=== PATIENT | male | born 1975 | race African-American/Black ===

== ENCOUNTER 2018-10-26 11:40 | Inpatient (IN) | payer SELFPAY ==
[~2018-10-26 11:40] MED LIST: ISOVUE-370 76%-LOCM 1 ML ONE
[2018-10-26] MEDS ORDERED: Ondansetron PF 4 MG/2 ML Vial ONE ×2 (11:54→13:38)
[2018-10-26 12:10] LABS: #Basophils 0.1 thou/uL (0.0-0.2); #Lymphocytes 4.3 thou/uL (1.20-3.40); %Basophils 0.9 % (0.0-1.0); %Eosinophils 0.2 % (0.0-10.0); %Lymphocytes 32.1 % (21.0-51.0); %Monocytes 7.7 % (0.0-10.0); %Neutrophils 59.1 % (42.0-75.0); Hemoglobin 18.2 g/dL (14.0-18.0); Mean Corpuscular HGB CONC 34.4 g/dL (32.0-36.0); Mean Corpuscular Volume 90.2 fL (78.0-98.0); Mean Platelet Volume 9.5 fL (7.4-10.4); Platelet Count 180 thou/uL (130-400); RBC Distribution Width 12.4 % (11.5-14.5); Red Blood Cell (RBC) Count 5.87 mill/uL (4.70-6.10); White Blood Cell (WBC) Count 13.5 thou/uL (4.8-10.8)
--- NOTE | 2018-10-26 12:12 | RAD ---
EXAM: Single view of the chest HISTORY: Chest pain COMPARISON: 04/21/2013 FINDINGS: Single view of the chest shows a normal sized cardiomediastinal silhouette. There is no jaimie dence of consolidation, mass, or pleural effusion. The bones are unremarkable. IMPRESSION: No evidence of acute cardiopulmonary disease
[2018-10-26 12:28] LABS: Platelet Morphology Comment Appears Adequate; RBC Morphology Normal
--- NOTE | 2018-10-26 12:36 | CT ---
EXAM: CTA of the chest and abdomen HISTORY: Chest pain and back pain COMPARISON: None TECHNIQUE: Multiple contiguous axial images were obtained a CTA of the chest and abdomen with contras t per aortic dissection protocol. Sagittal and coronal 3-D MIP reformats were performed. FINDINGS: HEART: Normal in size without focal cardiac abnormality. PULMONARY ARTERIES: Normal in caliber without filling defects to suggest pulmonary emboli. THORACIC AORTA: Normal in caliber without evidence dissection or aneurysmal dilatation. MEDIASTINUM: No hilar or mediastinal lymphadenopathy. LUNGS: No focal infiltrates or masses. PLEURAL SPACE: No pleural effusion or pneumothorax. CHEST AND ABDOMINAL WALL SOFT TISSUES: Unremarkable LIVER: Unremarkable. GALLBLADDER: Unremarkable. KIDNEYS: Unremarkable. SPLEEN: Unremarkable. PANCREAS: Unremarkable. BOWEL: Unremarkable. RETROPERITONEUM: No lymphadenopathy BONES: Unremarkable ASCENDING THORACIC AORTA:Normal caliber without evidence of dissection or aneurysmal dilatation. DESCENDING THORACIC AORTA:Normal caliber without evidence of dissection or aneurysmal dilatation. ABDOMINAL AORTA: Normal caliber without evidence of dissection or aneurysmal dilatation. CELIAC TRUNK: Patent SMA: Patent KAROLYN: Patent RENAL ARTERIES: Bilateral single renal arteries without significant atherosclerotic disease IMPRESSION: No evidence of thoracic or abdominal aortic aneurysm or dissection
[2018-10-26 12:53] LABS: PTT 27.4 SEC (22.9-36.1); Prothrombin Time 13.6 SEC (12.0-14.7)
[2018-10-26 12:54] LABS: ALT (SGPT) 37 U/L (8-55); AST (SGOT) 85 U/L (5-34); Albumin 5.2 g/dL (3.5-5.0); Alkaline Phosphatase 103 U/L (40-150); Anion Gap 21 mmol/L (10-20); BUN (Urea Nitrogen) 28 mg/dL (8.9-20.6); Bilirubin, Total 1.2 mg/dL (0.2-1.2); CK (CPK) 3785 U/L (30-200); Calc. Creatinine Clearance 0 mL/min (70-130); Calcium 10.7 mg/dL (7.8-10.44); Carbon Dioxide 27 mmol/L (22-29); Chloride 92 mmol/L (98-107); Estimated GFR-MDRD 39; Globulin 3.6 g/dL (2.4-3.5); Glucose 139 mg/dL (70-105); Lipase 22 U/L (8-78); Potassium 3.7 mmol/L (3.5-5.1); Protein, Total 8.8 g/dL (6.0-8.3); Sodium 136 mmol/L (136-145)
[2018-10-26 13:16] LABS: Iron 258 ug/dL (65-175); Iron Binding Capacity, Total 263 mcg/dL (261-462)
[2018-10-26] MEDS ORDERED: Morphine 4 MG/ML VIAL ONE (13:37)
[2018-10-26] MEDS ORDERED: Aspirin Chewable 81 MG TAB ONE (13:38)
[2018-10-26] MEDS ORDERED: Pantoprazole 40 MG VIAL ONE (13:38)
[2018-10-26] MEDS ORDERED: Ondansetron ODT 4 MG TAB SL PRN (14:46)
[2018-10-26] MEDS ORDERED: Acetaminophen 325 MG TAB PO PRN (14:46)
[2018-10-26] MEDS ORDERED: Ondansetron PF 4 MG/2 ML Vial IVP PRN (14:46)
[2018-10-26 15:42] LABS: Troponin I 0.047 ng/mL (< 0.028)
[2018-10-26 17:08] VITALS: BMI 25.4
[2018-10-26] MEDS: Sodium Chloride 0.9% 1,000 ML IV SCH ×3 (17:51→21:09)
[2018-10-26 18:26] LABS: Troponin I 0.041 ng/mL (< 0.028)
[2018-10-26] MEDS ORDERED: Calcium Carbonate 500 MG ChewTAB PO PRN (18:42)
[2018-10-26] MEDS ORDERED: Nitroglycerin 0.4 MG TAB (25 Tab Bottle) SL PRN (18:45)
[2018-10-26] MEDS: Pantoprazole 40 MG VIAL IVP SCH (21:09)
[2018-10-26] MEDS: Dicyclomine 10 MG CAP PO PRN (21:10)
[2018-10-26] MEDS ORDERED: Morphine 2 MG/ML SYRINGE SLOW IVP SCH (22:15)
--- NOTE | 2018-10-27 00:41 | HP ---
CHIEF COMPLAINT: Vomiting and diarrhea. HISTORY OF PRESENT ILLNESS: This patient is a 43-year-old male who is in generally very good health, who states he was doing well until Friday (today being Friday). The patient reports that on Friday, started developing some chills, sweats and low back pain, then developed nausea, vomiting, and diarrhea. He was unable to keep any p.o. down. Subsequent to that, he could not even keep down water. He kept going to work thinking he could wear it out and sweat it out. He installs carpet for living works physically. He just progressively got weaker and ultimately became lightheaded, felt like he might pass out. Reported that he had a fair amount of vomiting and 12/10 abdominal cramping pain. Reports he did ultimately have tiny streaks of blood associated with the emesis. He was ultimately able to try to keep a little bit of Pedialyte down very briefly, but ultimately that was only for a few minutes and would come back up as well. Denied specifically any fever. Denied any ill contacts. Denied any travel. Denied any suspect food intake. REVIEW OF SYSTEMS: The patient reports he had no urine output from Friday through Friday, at which time he started to keep down a little bit of Pedialyte briefly, the patient did report that he had some left-sided chest pain on arrival, but that resolved. All other systems reviewed and all pertinent positives and negatives in the history of present illness. PAST MEDICAL HISTORY: None. PAST SURGICAL HISTORY: Knee and jaw. FAMILY HISTORY: Grandparents had heart disease. His parents are both living and healthy. SOCIAL HISTORY: The patient smokes half a pack a day. Denies alcohol or drugs. He is single. He is full code. He lives with his parents and son. His mother, Marianna Nair would be his surrogate decision maker should that become necessary. ALLERGIES: NONE. CURRENT MEDICATIONS: None. PHYSICAL EXAMINATION: VITAL SIGNS: Temperature is 98.2, pulse 96, respirations 18, O2 saturation 98% on room air, and BP 134/84. GENERAL APPEARANCE: Age-appropriate male, in no distress. He is awake, alert, oriented, extremely pleasant, and cooperative. HEENT: CANDI. No OP lesions. TMs are normal. NECK: Supple and symmetric. HEART: Regular rate and rhythm without murmurs, gallops, or rubs. LUNGS: Clear to auscultation bilaterally with good chest wall expansion and air exchange. ABDOMEN: Soft, nontender, and nondistended. Has some hyperactive bowel sounds. No masses. No organomegaly. EXTREMITIES: No cyanosis, clubbing or edema. LABORATORY DATA: White count 13.5, hemoglobin 18.2, platelets 180. INR 1.0, PTT 27.4. Sodium 136, potassium 3.7, chloride 92, BUN 28, creatinine is 2.23, glucose 139, calcium 10.7. Iron 258. TIBC 263, ferritin 256, AST 85, ALT 37, alkaline phosphatase 103, CK 3785, CK-MB is 9.0, troponin 0.039. Albumin is 5.2, lipase 22. IMAGING DATA: CT dissection protocol is negative. Chest x-ray negative. IMPRESSION AND PLAN: 1. Nausea, vomiting, and diarrhea consistent with a gastroenteritis, likely viral illness, potentially some food poisoning. We will check stool studies. He already seems to be feeling some better with some fluid resuscitations. Been able to keep a little bit down with low liquids here so far. 2. Chest pain, unclear etiology. The patient appears to be profoundly dehydrated. He only has a risk factor of smoking half a pack a day. He has elevated total CK along with an elevated CK-MB and indeterminate troponins. Suspect this is non ST elevation myocardial infarction type 2 secondary to dehydration. We will continue to monitor. I believe the patient may benefit from a stress test once he is over his gastrointestinal symptoms and able to tolerate it well. 3. Rhabdomyolysis, likely due to the vomiting and the dehydration. Continue to hydrate. Do not believe his levels would warrant alkalinization at this time. 4. Acute renal failure. The patient's normal GFR is unknown, but there is no history of any renal issues and his GFR now is at 39 with a creatinine of 2.23. We will continue to hydrate and suspect this will improve with time. 5. Reflux. The patient is requesting medications for reflux, which is likely part of his gastroenteritis. May have esophagitis from the vomiting. We will give him some Zofran, Protonix and Bentyl. 6. Tobacco abuse. The patient has not smoked since 0100 hours today, says he has no desire to and believes he will quit at this point. Job ID: [id number]
[2018-10-27] MEDS: Sodium Chloride 0.9% 1,000 ML IV SCH ×3 (03:28→21:02)
[2018-10-27 06:31] LABS: Anion Gap 12 mmol/L (10-20); BUN (Urea Nitrogen) 16 mg/dL (8.9-20.6); Calc. Creatinine Clearance 97 mL/min (70-130); Calcium 8.8 mg/dL (7.8-10.44); Carbon Dioxide 29 mmol/L (22-29); Chloride 98 mmol/L (98-107); Estimated GFR-MDRD 77; Glucose 106 mg/dL (70-105); Potassium 3.1 mmol/L (3.5-5.1); Sodium 136 mmol/L (136-145)
[2018-10-27 06:37] LABS: Hemoglobin 13.5 g/dL (14.0-18.0); Mean Corpuscular HGB CONC 34.1 g/dL (32.0-36.0); Mean Corpuscular Hemoglobin 31.8 pg (27.0-31.0); Mean Corpuscular Volume 93.2 fL (78.0-98.0); Mean Platelet Volume 9.7 fL (7.4-10.4); Platelet Count 129 thou/uL (130-400); RBC Distribution Width 12.3 % (11.5-14.5); Red Blood Cell (RBC) Count 4.26 mill/uL (4.70-6.10); White Blood Cell (WBC) Count 9.9 thou/uL (4.8-10.8)
[2018-10-27 06:38] LABS: Band 1 % (5-11); Eosinophils 1 % (0-10); Lymphocytes 33 % (21-51); MDiff Complete? YES; Monocytes 9 % (0-10); Neutrophil 55 % (42-75); Platelet Morphology Comment Appears Adequate; Reactive Lymphocytes 1 % (0-10)
[2018-10-27] MEDS: Enoxaparin Sodium 40 MG/0.4 ML SYRINGE SC SCH (08:25)
[2018-10-27] MEDS: Pantoprazole 40 MG VIAL IVP SCH ×2 (08:26→21:01)
[2018-10-27] MEDS: Dicyclomine 10 MG CAP PO PRN (09:41)
[2018-10-27] MEDS ORDERED: Ondansetron PF 4 MG/2 ML Vial IVP PRN (14:18)
[2018-10-27] MEDS ORDERED: HYDROcodone/Acetaminophen 5/325 mg Tablet PO PRN (14:24)
[2018-10-27] MEDS ORDERED: Acetaminophen 325 MG TAB PO PRN (14:24)
--- NOTE | 2018-10-27 14:27 | PDOC.PN ---
- Subjective Encounter Start Date: 10/27/18 Encounter Start Time: 14:25 Subjective: Admitted due to acute severe cheat and back pain superimposed of N/V /D -: Feeling better. Still having nausea but vomiting and ache has subsided. - Objective Resuscitation Status - Order Detail: 10/26/18 18:36 Resuscitation Status Routine Resuscitation Status: FULL: Full Resuscitation Vital Signs & Weight: Vital Signs (12 hours) Temp Pulse Resp BP Pulse Ox 10/27/18 11:26 98.2 F 99 18 143/84 H 100 10/27/18 08:20 98.5 F 90 18 131/82 98 10/27/18 04:10 98.4 F 97 20 130/86 98 Weight Admit Weight 198 lb Weight 198 lb I&O: 10/26/18 10/27/18 10/28/18 06:59 06:59 06:59 Intake Total 1250 Output Total 525 Balance 725 Result Diagrams: 10/27/18 05:21 10/27/18 05:21 Phys Exam - Physical Examination Constitutional: NAD HEENT: PERRLA, moist MMs Neck: no nodes, no JVD, supple, full ROM Respiratory: no wheezing, no rales, no rhonchi, clear to auscultation bilateral Cardiovascular: RRR, no significant murmur Gastrointestinal: soft, no distention, positive bowel sounds mild epigastric/left upper quadrant tenderness Musculoskeletal: no edema, pulses present Neurological: non-focal, moves all 4 limbs Psychiatric: normal affect, A&O x 3 Dx/Plan (1) Rhabdomyolysis Code(s): M62.82 - RHABDOMYOLYSIS Status: Acute (2) Acute gastroenteritis Code(s): K52.9 - NONINFECTIVE GASTROENTERITIS AND COLITIS, UNSPECIFIED Status : Acute (3) Moderate dehydration Code(s): E86.0 - DEHYDRATION Status: Acute (4) GERD with esophagitis Code(s): K21.0 - GASTRO-ESOPHAGEAL REFLUX DISEASE WITH ESOPHAGITIS Status: Acute (5) CANDI (acute kidney injury) Code(s): N17.9 - ACUTE KIDNEY FAILURE, UNSPECIFIED Status: Acute (6) Hypokalemia Code(s): E87.6 - HYPOKALEMIA Status: Acute (7) Chest pain Code(s): R07.9 - CHEST PAIN, UNSPECIFIED Status: Acute (8) Demand ischemia of myocardium Code(s): I24.8 - OTHER FORMS OF ACUTE ISCHEMIC HEART DISEASE Status: Acute - Plan Continue NS at 200 cc/hr. -: Repeat CK level. Increase NS rate if not trending down -: Replete serum potassium and get serum magnesium -: Monitor renal function. avoid nephrotoxic agents -: Continue PPI. Advance diet as tolerated. Analgesic and antiemeic prn * .
[2018-10-27] MEDS: Potassium Chloride 20 MEQ TAB PO SCH ×2 (14:46→18:18)
[2018-10-27] MEDS: Ondansetron ODT 4 MG TAB PO PRN ×2 (14:49→21:06)
[2018-10-28] MEDS: Sodium Chloride 0.9% 1,000 ML IV SCH ×4 (01:21→19:16)
[2018-10-28 07:06] LABS: Mean Corpuscular HGB CONC 33.3 g/dL (32.0-36.0); Mean Corpuscular Hemoglobin 31.7 pg (27.0-31.0); Mean Corpuscular Volume 95.1 fL (78.0-98.0); Mean Platelet Volume 9.8 fL (7.4-10.4); Platelet Count 126 thou/uL (130-400); RBC Distribution Width 12.2 % (11.5-14.5); Red Blood Cell (RBC) Count 4.09 mill/uL (4.70-6.10); White Blood Cell (WBC) Count 8.9 thou/uL (4.8-10.8)
[2018-10-28 07:16] LABS: Anion Gap 10 mmol/L (10-20); BUN (Urea Nitrogen) 10 mg/dL (8.9-20.6); CK (CPK) 1114 U/L (30-200); Calc. Creatinine Clearance 109 mL/min (70-130); Carbon Dioxide 27 mmol/L (22-29); Chloride 105 mmol/L (98-107); Estimated GFR-MDRD 88; Glucose 97 mg/dL (70-105); Magnesium 1.8 mg/dL (1.6-2.6); Potassium 3.8 mmol/L (3.5-5.1); Sodium 138 mmol/L (136-145)
[2018-10-28 08:23] LABS: Band 4 % (5-11); Lymphocytes 36 % (21-51); MDiff Complete? YES; Metamyelocyte 1 % (0-0); Monocytes 9 % (0-10); Neutrophil 49 % (42-75); Platelet Morphology Comment Appears Decreased; RBC Morphology Normal
[2018-10-28] MEDS: Pantoprazole 40 MG VIAL IVP SCH (08:29)
[2018-10-28] MEDS: Enoxaparin Sodium 40 MG/0.4 ML SYRINGE SC SCH (08:29)
--- NOTE | 2018-10-28 10:05 | PDOC.PN ---
- Objective Resuscitation Status - Order Detail: 10/26/18 18:36 Resuscitation Status Routine Resuscitation Status: FULL: Full Resuscitation Vital Signs & Weight: Vital Signs (12 hours) Temp Pulse Resp BP Pulse Ox 10/28/18 07:23 98.2 F 80 18 124/81 98 10/28/18 04:13 98.1 F 86 18 117/77 98 Weight Admit Weight 198 lb Weight 198 lb I&O: 10/27/18 10/28/18 10/29/18 06:59 06:59 06:59 Intake Total 1250 3750 Output Total 525 2040 Balance 725 1710 Result Diagrams: 10/28/18 05:33 10/28/18 05:33 Dx/Plan - Plan * .
[2018-10-28 14:29] LABS: Bilirubin Negative (Negative); Blood, Urine Large (Negative); Clarity CLEAR (Clear); Glucose, Urine (Dipstick) Negative (Negative); Leukocyte Small (Negative); Nitrite Negative (Negative); Protein, Urine (Dipstick) Negative (Neg-Trace); Specific Gravity, Urine 1.013 (1.002-1.036)
[2018-10-28 14:39] LABS: Bacteria/HPF None Seen HPF (None Seen); Hyaline Casts/LPF 0-3 HYALINE CAST LPF (0-3 Hyaline); Pathc Cast-AUWi Flag 0.27 (0-2.49); RBC/HPF GREATER THAN 50-TNTC HPF (0-3); Squamous Epithelial 0-3 HPF (0-3)
[2018-10-28] MEDS: Dicyclomine 10 MG CAP PO PRN (16:16)
[2018-10-28] MEDS ORDERED: Bisacodyl 10 MG SUPP PR PRN (19:33)
[2018-10-28] MEDS ORDERED: Mag-Al 1200 mg/1200 mg/30 ML UDCUP PO PRN (19:34)
[2018-10-28] MEDS ORDERED: Polyethylene Glycol 3350 17 GM Packet PO SCH (19:45)
[2018-10-28] MEDS: Senokot S 8.6-50 MG TAB PO SCH (20:40)
--- NOTE | 2018-10-28 20:46 | PRG ---
DATE OF SERVICE: 10/28/2018 SUBJECTIVE: A 43-year-old male with no past medical history, presented to the hospital on 10/26/2018, with nausea, vomiting, diarrhea along with generalized weakness. His workup was consistent with acute kidney injury along with rhabdomyolysis as well as gastroenteritis. He was started on IV fluids. Abdominal pain is improving. Currently, the pain is 4/10 in the right quadrant. He denies any nausea or vomiting. He did not have any bowel movement for last 3 days. No fever or chills reported. His urine is turning dark since this morning. OBJECTIVE: VITAL SIGNS: Temperature 98.4, pulse 77, blood pressure 120/88, respirations 18, O2 saturation 100% on room air. GENERAL: A 43-year-old male, in mild distress due to abdominal discomfort. LUNGS: Clear to auscultation bilaterally. HEART: S1 and S2 present. Regular rate and rhythm. ABDOMEN: Soft. There is tenderness on superficial palpation on the right of the umbilicus. No rebound or guarding. Bowel sounds are present. EXTREMITIES: No edema or calf tenderness. NEUROLOGICAL: Grossly nonfocal. LABORATORY FINDINGS: WBC 8.9, platelets 126. Potassium 3.8, magnesium 1.8. CK was 1114. Telemetry monitoring by my review showed sinus rhythm. CT scan, dissection protocol was negative for acute intraabdominal pathology. IMPRESSION: 1. Sepsis secondary to acute gastroenteritis, improving. 2. Acute kidney injury on chronic kidney disease stage 2, improving. 3. Acute rhabdomyolysis, probably secondary to dehydration/muscle exertion. 4. Elevated troponin secondary to demand ischemia/type 2 myocardial infarction. 5. Hypokalemia. 6. Metabolic acidosis on admission, improved. 7. New onset gross hematuria since this morning of unclear etiology. 8. Chronic anemia. 9. Generalized weakness, improving. 10. Tobacco dependence. The patient was counseled. 11. Thrombocytopenia. PLAN: We will reduce IV fluids to 150 an hour. We will recheck CK in a.m. We will change Protonix to p.o. Continue Zofran as needed for nausea. Monitor platelets. We will consult Urology. The patient can be transferred to Medical. We will discontinue Lovenox due to gross hematuria. We will treat constipation. Job ID: [id number]
[2018-10-28] MEDS ORDERED: Cyclobenzaprine 10 MG TAB PO PRN (21:00)
[2018-10-29 04:37] LABS: Platelet Count 132 thou/uL (130-400)
[2018-10-29] MEDS: Sodium Chloride 0.9% 1,000 ML IV SCH ×5 (04:46→23:51)
[2018-10-29] MEDS: Saccharomyces boulardii 250 MG CAP PO SCH (08:11)
[2018-10-29] MEDS: Senokot S 8.6-50 MG TAB PO SCH ×2 (08:11→19:57)
[2018-10-29] MEDS: Polyethylene Glycol 3350 17 GM Packet PO SCH (08:11)
[2018-10-29] MEDS: Multivit, Therapeutic 1 TAB PO SCH (08:11)
--- NOTE | 2018-10-29 19:16 | PDOC.PN ---
- Subjective Encounter Start Date: 10/29/18 Encounter Start Time: 11:30 Patient seen and examined for CANDI. Gross hematuria clearing. Abd pain improving. No new complaints. No overnight events - Objective Resuscitation Status - Order Detail: 10/26/18 18:36 Resuscitation Status Routine Resuscitation Status: FULL: Full Resuscitation MAR Reviewed: Yes Vital Signs & Weight: Vital Signs (12 hours) Temp Pulse Resp BP Pulse Ox 10/29/18 08:00 97 10/29/18 07:39 98.1 F 76 16 133/87 97 Weight Admit Weight 198 lb Weight 198 lb I&O: 10/28/18 10/29/18 10/30/18 06:59 06:59 06:59 Intake Total 3750 5150 960 Output Total 2040 4250 Balance 1710 900 960 Result Diagrams: 10/29/18 04:25 10/28/18 05:33 Phys Exam - Physical Examination Constitutional: NAD Respiratory: no wheezing, no rhonchi Cardiovascular: RRR, no rub Gastrointestinal: soft, positive bowel sounds mild R sided tenderness, no rebound/guarding Musculoskeletal: no edema Neurological: non-focal, moves all 4 limbs Dx/Plan - Plan DVT proph w/SCDs IMPRESSION: 1. Sepsis secondary to acute gastroenteritis, improving. 2. Acute kidney injury on chronic kidney disease stage 2, improving. 3. Acute rhabdomyolysis, probably secondary to dehydration/muscle exertion. CK 684 today 4. Elevated troponin secondary to demand ischemia/type 2 myocardial infarction. 5. Hypokalemia. 6. Metabolic acidosis on admission, improved. 7. New onset gross hematuria since this morning of unclear etiology. improving 8. Chronic anemia. 9. Generalized weakness, improving. 10. Tobacco dependence. The patient was counseled. 11. Thrombocytopenia. PLAN: Cancel Urology consult Repeat CK and BMP in AM Cont IVF Cont other meds as below Probable dc in AM if stable Review of Systems - Review of Systems Respiratory: negative: Cough, Dry, Shortness of Breath, Hemoptysis, SOB with Excertion, Pleuritic Pain, Sputum, Wheezing Cardiovascular: negative: chest pain, palpitations, orthopnea, paroxysmal nocturnal dyspnea, edema, light headedness, other - Medications/Allergies Allergies/Adverse Reactions: Allergies Allergy/AdvReac Type Severity Reaction Status Date / Time No Known Allergies Allergy Verified 10/26/18 17:29 Medications: Current Medications Acetaminophen (Tylenol) 650 mg PO Q6H PRN PRN Reason: Fever/Mild Pain Hydrocodone Bitart/Acetaminophen (Eden 5/325) 1 tab PO Q4H PRN PRN Reason: Moderate Pain (4-6) Last Admin: 10/28/18 16:15 Dose: 1 tab Al Hydroxide/Mg Hydroxide (Maalox) 30 ml PO Q6H PRN PRN Reason: Heartburn or Indigestion Bisacodyl (Dulcolax) 10 mg FL DAILYPRN PRN PRN Reason: Constipation Calcium Carbonate (Tums) 1,000 mg PO Q4H PRN PRN Reason: Heartburn or Indigestion Cyclobenzaprine HCl (Flexeril) 10 mg PO TID PRN PRN Reason: Muscle Spasm Stop: 10/30/18 21:01 Last Admin: 10/29/18 04:13 Dose: 10 mg Dicyclomine HCl (Bentyl) 10 mg PO QID PRN PRN Reason: GI Cramping Last Admin: 10/28/18 16:16 Dose: 10 mg Sodium Chloride (Normal Saline 0.9%) 1,000 mls @ 150 mls/hr IV .Q6H40M [facility] Last Admin: 10/29/18 15:32 Dose: Not Given Multivitamins (Theragran) 1 tab PO DAILY [facility] Last Admin: 10/29/18 08:11 Dose: 1 tab Nitroglycerin (Nitrostat) 0.4 mg SL Q5MIN PRN PRN Reason: Chest Pain Ondansetron HCl (Zofran Odt) 4 mg PO Q6H PRN PRN Reason: Nausea/Vomiting Last Admin: 10/27/18 21:06 Dose: 4 mg Ondansetron HCl (Zofran) 4 mg IVP Q6H PRN PRN Reason: Nausea/Vomiting Last Admin: 10/27/18 18:22 Dose: 4 mg Pantoprazole Sodium (Protonix) 40 mg PO DAILY [facility] Last Admin: 10/29/18 08:11 Dose: 40 mg Polyethylene Glycol (Miralax) 17 gm PO DAILY [facility] Last Admin: 10/29/18 08:11 Dose: 17 gm Saccharomyces Boulardii (Florastor) 250 mg PO DAILY [facility] Last Admin: 10/29/18 08:11 Dose: 250 mg Senna/Docusate Sodium (Senokot S) 2 tab PO BID [facility] Last Admin: 10/29/18 08:11 Dose: 2 tab Sodium Chloride (Flush - Normal Saline) 10 ml IVF Q12HR [facility] Last Admin: 10/29/18 08:11 Dose: Not Given Sodium Chloride (Flush - Normal Saline) 10 ml IVF PRN PRN PRN Reason: Saline Flush
[2018-10-30] MEDS: Sodium Chloride 0.9% 1,000 ML IV SCH (05:12)
[2018-10-30] MEDS: Polyethylene Glycol 3350 17 GM Packet PO SCH (07:44)
[2018-10-30] MEDS: Multivit, Therapeutic 1 TAB PO SCH (07:44)
[2018-10-30] MEDS: Saccharomyces boulardii 250 MG CAP PO SCH (07:44)
[2018-10-30] MEDS: Senokot S 8.6-50 MG TAB PO SCH (07:47)
[2018-10-30 07:56] VITALS: BP 152/97; TEMP 97.6
[2018-10-30] MEDS ORDERED: Sodium Chloride 0.9% 1,000 ML IV SCH (07:59)
[2018-10-30 08:42] LABS: Anion Gap 12 mmol/L (10-20); BUN (Urea Nitrogen) 16 mg/dL (8.9-20.6); CK (CPK) 364 U/L (30-200); Calc. Creatinine Clearance 119 mL/min (70-130); Calcium 8.9 mg/dL (7.8-10.44); Carbon Dioxide 24 mmol/L (22-29); Chloride 106 mmol/L (98-107); Estimated GFR-MDRD Greater than 90; Glucose 93 mg/dL (70-105); Potassium 4.3 mmol/L (3.5-5.1); Sodium 138 mmol/L (136-145)
--- NOTE | 2018-10-30 10:07 | DIS ---
DATE OF ADMISSION: 10/26/2018 DATE OF DISCHARGE: 10/30/2018 DISCHARGE DISPOSITION: Home. FOLLOWUP: Follow up with primary care physician at [facility] in 1 week. DISCHARGE MEDICATIONS: 1. Protonix 40 mg daily. 2. Multivitamin one tablet daily. The patient was seen on the day of discharge. Denies any new complaints. No chest pain, shortness of breath, palpitations, nausea, vomiting, or diarrhea reported. BRIEF HOSPITAL COURSE: The patient is a 43-year-old male with no past medical history, presented to the hospital with nausea, vomiting, and diarrhea. His workup was consistent with acute gastroenteritis along with dehydration, acute renal failure, and rhabdomyolysis. Please refer to the history and physical for further details. The patient was admitted to the hospital with a diagnosis of sepsis secondary to acute gastroenteritis along with acute kidney injury. His creatinine on admission was 2.23 that improved with IV hydration. His creatinine at discharge is 1.01. He was also found to have rhabdomyolysis with CK of 3785 that improved to 364 at discharge. He also had elevated troponins in the indeterminate range, probably secondary to dehydration. WBC count improved from 13.5 to 8.9. He also had mild gross hematuria with urine RBC greater than 50. This was self-limiting and has completely resolved. CT dissection protocol done in the emergency room was essentially negative. He appears stable for discharge. FINAL DIAGNOSES: 1. Sepsis secondary to acute gastroenteritis, resolved. 2. Acute kidney injury on chronic kidney disease stage 2. 3. Acute rhabdomyolysis, probably secondary to dehydration/muscle exertion, improving. 4. Elevated troponin secondary to demand ischemia/type 2 myocardial infarction. 5. Hypokalemia, replaced. 6. Metabolic acidosis, resolved. 7. Self-limiting gross hematuria, resolved. 8. Chronic anemia. 9. Generalized weakness. 10. Tobacco dependence. The patient was counseled. 11. Thrombocytopenia, resolved. 12. Gastroesophageal reflux disease with suspected esophagitis. The patient will be on PPIs for 4 weeks. PLAN: Plan of care was discussed with the patient in detail. He stated understanding. Job ID: [id number]
== END 2018-10-30 11:00 | disposition home or self-care (01) | DRG 871 ==
LOC: ERS 11:40 → EEVIPCON 13:57 → 2NO 13:57 → T4-A 10-28 21:43
PROVIDERS: ADMIT Internal Medicine; ATTEND Internal Medicine
DX: A41.89 Other specified sepsis (principal); I21.A1 Myocardial infarction type 2; N17.9 Acute kidney failure, unspecified; M62.82 Rhabdomyolysis; E87.2 Acidosis; A08.4 Viral intestinal infection, unspecified; F17.210 Nicotine dependence, cigarettes, uncomplicated; E86.0 Dehydration; K21.9 Gastro-esophageal reflux disease without esophagitis; F41.9 Anxiety disorder, unspecified; E87.6 Hypokalemia; D64.9 Anemia, unspecified; D69.6 Thrombocytopenia, unspecified; N18.2 Chronic kidney disease, stage 2 (mild); R31.0 Gross hematuria
CPT/HCPCS: 36415; 71045; 71275; 80048; 80053; 81001; 82550; 82553; 82728; 83540; 83550; 83690; 83735; 84484; 85014; 85018; 85025; 85049; 85610; 85730; 86850; 86900; 86901; 93005; 94760; 96361; 96372; 96374; 96375; 96376; C9113; J0500; J1650; J2270; J2405; Q0162; Q9966

== ENCOUNTER 2019-06-01 12:35 | Emergency (ER) | payer SELFPAY | END 2019-06-01 14:50 | disposition home or self-care (01) | LOC: ERS 12:35 | DX: J10.1 Influenza due to other identified influenza virus with other respiratory manifestations (principal); F41.9 Anxiety disorder, unspecified; F17.210 Nicotine dependence, cigarettes, uncomplicated | CPT/HCPCS: 87804; 99283 ==

== ENCOUNTER 2021-03-08 13:15 | Emergency (ER) | payer OTHER, SELFPAY ==
[2021-03-08] MEDS ORDERED: Ibuprofen 800 MG TAB ONE (14:56)
== END 2021-03-08 15:06 | disposition home or self-care (01) ==
LOC: ERS 13:15
DX: M54.50 Low back pain, unspecified (principal); F17.210 Nicotine dependence, cigarettes, uncomplicated; V89.2XXA Person injured in unspecified motor-vehicle accident, traffic, initial encounter
CPT/HCPCS: 99283

== ENCOUNTER 2021-05-10 15:15 | Emergency (ER) | payer SELFPAY | END 2021-05-10 16:35 | disposition home or self-care (01) | LOC: ERS 15:15 | DX: J00 Acute nasopharyngitis [common cold] (principal); F17.210 Nicotine dependence, cigarettes, uncomplicated | CPT/HCPCS: 99283 ==